=== PATIENT | female | born 1950 | race Caucasian/White ===

== ENCOUNTER 2022-02-26 13:46 | Outpatient (CLI) | payer MEDICARE, SELFPAY ==
--- NOTE | ~2022-02-26 | CT_ITS ---
EXAMINATION: CT abdomen pelvis w con DATE: 02/26/2022 15:07 INDICATION: Round distended abdomen, possible hepatomegaly. TECHNIQUE: Computed tomography (CT) of the abdomen and pelvis was performed with 100 CC Omnipaque 350 intravenous contrast. Automated exposure control and iterative reconstruction technique were employe d. Exam dose: 1412.86 mGy-cm total exam DLP. COMPARISON: None. FINDINGS: There is minimal atelectasis at the lung bases. No consolidation is noted at the included l ower lung zones. Cardiomegaly. Coronary artery calcification. No pericardial or pleural effusion. The liver, gallbladder, bile ducts, spleen, pancreas, pancreatic duct, and adrenal glands and kidneys are unremarkable. No urinary tract calculus or hydroureteronephrosis. The urinary bladder is unremar kable. Status post hysterectomy. There is atherosclerotic calcification of the descending thoracic and abdominal aorta but no evidence of aneurysm. No intraperitoneal or retroperitoneal or pelvic mass lesion or adenopathy or ascites. Scattered sigmoid and descending colonic diverticula; no CT evidence of diverticulitis. No bowel obst ruction. No bowel wall thickening, pneumatosis or intraperitoneal free air is detected. There is a suture line along the mid anterior abdominal and pelvic wall. Some fat containing ventral abdominal wall hernias are noted in the vicinity of the scar. No bowel herniation. Status post anterior and posterior lumbar surgical fusion. Degenerative change of the thoracic and ger mbar spine. No suspicious osteolytic or osteoblastic lesions are identified. IMPRESSION: Diverticulosis of the left colon; no evidence of diverticulitis Postoperative change of the anterior abdominal and pelvic wall with some fat containing hernias adjac ent to a scar Status post posterior and anterior surgical fusion of the lumbar spine Reviewed, dictated and finalized at [facility]. Reviewed, dictated and finalized at [facility]. IMPRESSION: Diverticulosis of the left colon; no evidence of diverticulitis Postoperative change of the anterior abdominal and pelvic wall with some fat co ntaining hernias adjacent to a scar Status post posterior and anterior surgical fusion of the lumbar spine
[2022-02-26 15:01] LABS: Estimated Glomerular Filt Rate > 60
== END 2022-02-26 13:47 | disposition home or self-care (01) ==
LOC: ANHIMG 13:49
PROVIDERS: PCP Internal Medicine; Visit Provider Nurse Practitioner
DX: K76.0 Fatty (change of) liver, not elsewhere classified (principal); R14.0 Abdominal distension (gaseous); R19.8 Other specified symptoms and signs involving the digestive system and abdomen; K57.30 Diverticulosis of large intestine without perforation or abscess without bleeding; Z98.1 Arthrodesis status
CPT/HCPCS: 74177; Q9967

== ENCOUNTER 2022-03-04 01:38 | Day surgery (SDC) | payer MEDICARE, SELFPAY ==
[2022-02-27 11:00] VITALS: BMI 46.2
[2022-03-04 11:20] VITALS: BP 125/75; PULSE 71; RESP 18; TEMP 36.6; O2SAT 97; BMI 44.0
[2022-03-04] MEDS: LACTATED RINGERS 1,000 ML 150 ML IV CONT (11:31)
--- NOTE | 2022-03-04 11:35 | PM.HPGS ---
History of Present Illness History of Present Illness Consent: Risks, benefits, and alternatives have been discussed and questions answered. Patient agrees to proceed with procedure. Chief complaint: Diarrhea, Belching, Abdomen Distension Narrative: Hafsa Shepard is a 71 year old female Presents for both colonoscopy an EGD. Patient has a longstanding history of diabetes for which she takes insulin and metformin. She has peripheral neuropathy. Patient has a history of follow eructations. She has been treated for acid reflux. recently obtained relief with metoclopramide. She does take this intermittently. Patient additionally has ongoing diarrhea. Poorly responsive to typical therapies. She has had frequent loose stools. GI endoscopy has been requested. Family history noncontributory. Review of Systems Review of Systems: Review of systems noncontributory. [facility] Past Medical History Medical History (Updated 03/04/22 @ 11:38 by Gallo Harris MD) Abnormal abdominal exam Belching symptom Bloating symptom COPD (chronic obstructive pulmonary disease) Hepatic steatosis History of Helicobacter pylori infection Hx of adenomatous colonic polyps retirement current use of anticoagulant Obesities, morbid Surgical History Surgical History (Updated 02/17/22 @ 12:40 by Eryn Estes, WORK COUNSELOR) H/O total hysterectomy H/O umbilical hernia repair Social History Social History Smoking packs per day: 1 Smoking cigarettes per day: 20.0 Years smoked: 50 Smoking pack-years: 50.00 Smoking status: Former smoker Tobacco type: cigarettes Alcohol intake: current Substance use: current Substance use type: marijuana Other substance usage details: MED[employer] MARIJUANA- GUMMIES [employer] VAPES Living arrangements: with family Spiritual care concerns: No Meds Home Medications and Allergies Home Medications Medication Instructions Recorded Confirmed Type albuterol sulfate 2.5 mg/3 mL 2.5 mg inhalation Q6H PRN 02/17/22 03/04/22 History (0.083 %) solution for nebulization Shortness Of Breath Or Wheezing albuterol sulfate 90 mcg/actuation 1 puff inhalation Q4H PRN 02/17/22 03/04/22 History aerosol inhaler Shortness Of Breath alendronate 70 mg/75 mL oral 70 mg PO WEEKLY 02/17/22 03/04/22 History solution apixaban 5 mg tablet 5 mg PO BID 02/17/22 03/04/22 History atorvastatin 80 mg tablet 80 mg PO DAILY 02/17/22 03/04/22 History budesonide 160 mcg-glycopyr 9 2 inh inhalation BID 02/17/22 03/04/22 History mcg-formot 4.8 mcg/actuation HFA inhaler diphenhydramine HCl 25 mg capsule 25 mg PO HS 02/17/22 03/04/22 History duloxetine 30 mg capsule,delayed 30 mg PO DAILY 02/17/22 03/04/22 History release fluconazole 150 mg tablet 150 mg PO WEEKLY 02/17/22 03/04/22 History metformin 1,000 mg tablet 1,000 mg PO BID 02/17/22 03/04/22 History metoclopramide HCl 10 mg tablet 10 mg PO Q6H PRN Nausea 02/17/22 03/04/22 History semaglutide 0.25 mg or 0.5 mg (2 1 mg subcut WEEKLY 02/17/22 03/04/22 History mg/1.5 mL) subcutaneous pen injector insulin aspart U-100 100 unit/mL 25 unit subcut QACBREAK 02/27/22 03/04/22 History subcutaneous solution (Novolog U-100 Insulin aspart) insulin aspart U-100 100 unit/mL 35 unit subcut QACLUNCH 02/27/22 03/04/22 History subcutaneous solution (Novolog U-100 Insulin aspart) insulin aspart U-100 100 unit/mL 45 unit subcut QACDINNER 02/27/22 03/04/22 History subcutaneous solution (Novolog U-100 Insulin aspart) insulin degludec 100 unit/mL (3 50 unit subcut QAM 02/27/22 03/04/22 History mL) subcutaneous pen (Tresiba FlexTouch U-100 insulin) insulin degludec 100 unit/mL (3 60 unit subcut HS 02/27/22 03/04/22 History mL) subcutaneous pen (Tresiba FlexTouch U-100 insulin) ipratropium 0.5 mg-albuterol 3 mg 3 ml inhalation Q6H PRN Shortness 02/27/22 03/04/22 History (2.5 mg base)/3 mL nebulization Of Breath Or Wheezing soln lisinopr
[2022-03-04 11:39] LABS: Glucose Point of Care 176 mg/dl (65-105)
--- NOTE | 2022-03-04 11:42 | WPDANESEPP ---
Anes - Eval Pre Procedure Procedure: Operation Date: 03/04/22 13:00 Proposed Procedures p Esophagogastroduodenoscopy & Colonoscopy - Gallo Harris MD Date/Time: 03/04/22 11:42 Surgeon: Steven Pre Op Diagnosis: Diarrhea, Belching, Abdomen Distension Patient Data Age: 71 Gender: F Height: 1.55 m Weight: 105.7 kg Last Vital Signs Temp 36.6 C 03/04/22 11:20 Pulse 71 03/04/22 11:20 Resp 18 03/04/22 11:20 BP 125/75 03/04/22 11:20 Pulse Ox 97 03/04/22 11:20 O2 Del Method Room Air 03/04/22 11:20 Allergies Allergy/AdvReac Type Severity Reaction Status Date / Time cefdinir Allergy Mild Rash Verified 03/04/22 11:17 nickel Allergy Mild rash Verified 03/04/22 11:17 propoxyphene Allergy Mild Nausea and Verified 03/04/22 11:17 Vomiting hydrocodone [From Vicodin] AdvReac Intermediate Nausea and Verified 03/04/22 11:17 Vomiting Opioids-Meperidine and AdvReac Intermediate Nausea and Verified 03/04/22 11:17 Related Vomiting Home Medications Medication Instructions Recorded Confirmed Type albuterol sulfate 2.5 mg/3 mL 2.5 mg inhalation Q6H PRN 02/17/22 03/04/22 History (0.083 %) solution for nebulization Shortness Of Breath Or Wheezing albuterol sulfate 90 mcg/actuation 1 puff inhalation Q4H PRN 02/17/22 03/04/22 History aerosol inhaler Shortness Of Breath alendronate 70 mg/75 mL oral 70 mg PO WEEKLY 02/17/22 03/04/22 History solution apixaban 5 mg tablet 5 mg PO BID 02/17/22 03/04/22 History atorvastatin 80 mg tablet 80 mg PO DAILY 02/17/22 03/04/22 History budesonide 160 mcg-glycopyr 9 2 inh inhalation BID 02/17/22 03/04/22 History mcg-formot 4.8 mcg/actuation HFA inhaler diphenhydramine HCl 25 mg capsule 25 mg PO HS 02/17/22 03/04/22 History duloxetine 30 mg capsule,delayed 30 mg PO DAILY 02/17/22 03/04/22 History release fluconazole 150 mg tablet 150 mg PO WEEKLY 02/17/22 03/04/22 History metformin 1,000 mg tablet 1,000 mg PO BID 02/17/22 03/04/22 History metoclopramide HCl 10 mg tablet 10 mg PO Q6H PRN Nausea 02/17/22 03/04/22 History semaglutide 0.25 mg or 0.5 mg (2 1 mg subcut WEEKLY 02/17/22 03/04/22 History mg/1.5 mL) subcutaneous pen injector insulin aspart U-100 100 unit/mL 25 unit subcut QACBREAK 02/27/22 03/04/22 History subcutaneous solution (Novolog U-100 Insulin aspart) insulin aspart U-100 100 unit/mL 35 unit subcut QACLUNCH 02/27/22 03/04/22 History subcutaneous solution (Novolog U-100 Insulin aspart) insulin aspart U-100 100 unit/mL 45 unit subcut QACDINNER 02/27/22 03/04/22 History subcutaneous solution (Novolog U-100 Insulin aspart) insulin degludec 100 unit/mL (3 50 unit subcut QAM 02/27/22 03/04/22 History mL) subcutaneous pen (Tresiba FlexTouch U-100 insulin) insulin degludec 100 unit/mL (3 60 unit subcut HS 02/27/22 03/04/22 History mL) subcutaneous pen (Tresiba FlexTouch U-100 insulin) ipratropium 0.5 mg-albuterol 3 mg 3 ml inhalation Q6H PRN Shortness 02/27/22 03/04/22 History (2.5 mg base)/3 mL nebulization Of Breath Or Wheezing soln lisinopril 40 mg tablet 40 mg PO DAILY 02/27/22 03/04/22 History metoprolol tartrate 25 mg tablet 25 mg PO BID 02/27/22 03/04/22 History multivit with minerals-iron 18 1 tablet PO DAILY 02/27/22 03/04/22 History mg-folic ac 400 mcg-vit K 25 mcg tablet (Adults Multivitamin) Laboratory Tests 03/04/22 11:34 POC Capillary Glucose 176 mg/dl H mg/dl (65-105) : patient denies Patient hx anesthesia problems: none Family hx anesthesia problems: none Results Review: All pre-operative results and documents have been reviewed as part of the pre-operative evaluation. [facility] Past Medical History Medical History (Updated 03/04/22 @ 11:38 by Gallo Harris MD) Abnormal abdominal exam Belching symptom Bloating symptom COPD (chronic obstructive pulmonary disease) Hepatic steatosis History of Helicobacter pylori infection Hx of
--- NOTE | 2022-03-04 11:50 | WPDANESEPPF ---
Anes - Initial Pre Proc Eval Procedure: Operation Date: 03/04/22 13:00 Proposed Procedures p Esophagogastroduodenoscopy & Colonoscopy - Gallo Harris MD Date/Time: 03/04/22 11:50 Surgeon: Gallo Harris MD Pre Op Diagnosis: Diarrhea, Belching, Abdomen Distension Patient Data Age: 71 Gender: F Height: 1.55 m Weight: 105.7 kg Last Vital Signs Temp 97.9 F 03/04/22 11:20 Pulse 71 03/04/22 11:20 Resp 18 03/04/22 11:20 BP 125/75 03/04/22 11:20 Pulse Ox 97 03/04/22 11:20 O2 Del Method Room Air 03/04/22 11:20 Allergies Allergy/AdvReac Type Severity Reaction Status Date / Time cefdinir Allergy Mild Rash Verified 03/04/22 11:17 nickel Allergy Mild rash Verified 03/04/22 11:17 propoxyphene Allergy Mild Nausea and Verified 03/04/22 11:17 Vomiting hydrocodone [From Vicodin] AdvReac Intermediate Nausea and Verified 03/04/22 11:17 Vomiting Opioids-Meperidine and AdvReac Intermediate Nausea and Verified 03/04/22 11:17 Related Vomiting Home Medications Medication Instructions Recorded Confirmed Type albuterol sulfate 2.5 mg/3 mL 2.5 mg inhalation Q6H PRN 02/17/22 03/04/22 History (0.083 %) solution for nebulization Shortness Of Breath Or Wheezing albuterol sulfate 90 mcg/actuation 1 puff inhalation Q4H PRN 02/17/22 03/04/22 History aerosol inhaler Shortness Of Breath alendronate 70 mg/75 mL oral 70 mg PO WEEKLY 02/17/22 03/04/22 History solution apixaban 5 mg tablet 5 mg PO BID 02/17/22 03/04/22 History atorvastatin 80 mg tablet 80 mg PO DAILY 02/17/22 03/04/22 History budesonide 160 mcg-glycopyr 9 2 inh inhalation BID 02/17/22 03/04/22 History mcg-formot 4.8 mcg/actuation HFA inhaler diphenhydramine HCl 25 mg capsule 25 mg PO HS 02/17/22 03/04/22 History duloxetine 30 mg capsule,delayed 30 mg PO DAILY 02/17/22 03/04/22 History release fluconazole 150 mg tablet 150 mg PO WEEKLY 02/17/22 03/04/22 History metformin 1,000 mg tablet 1,000 mg PO BID 02/17/22 03/04/22 History metoclopramide HCl 10 mg tablet 10 mg PO Q6H PRN Nausea 02/17/22 03/04/22 History semaglutide 0.25 mg or 0.5 mg (2 1 mg subcut WEEKLY 02/17/22 03/04/22 History mg/1.5 mL) subcutaneous pen injector insulin aspart U-100 100 unit/mL 25 unit subcut QACBREAK 02/27/22 03/04/22 History subcutaneous solution (Novolog U-100 Insulin aspart) insulin aspart U-100 100 unit/mL 35 unit subcut QACLUNCH 02/27/22 03/04/22 History subcutaneous solution (Novolog U-100 Insulin aspart) insulin aspart U-100 100 unit/mL 45 unit subcut QACDINNER 02/27/22 03/04/22 History subcutaneous solution (Novolog U-100 Insulin aspart) insulin degludec 100 unit/mL (3 50 unit subcut QAM 02/27/22 03/04/22 History mL) subcutaneous pen (Tresiba FlexTouch U-100 insulin) insulin degludec 100 unit/mL (3 60 unit subcut HS 02/27/22 03/04/22 History mL) subcutaneous pen (Tresiba FlexTouch U-100 insulin) ipratropium 0.5 mg-albuterol 3 mg 3 ml inhalation Q6H PRN Shortness 02/27/22 03/04/22 History (2.5 mg base)/3 mL nebulization Of Breath Or Wheezing soln lisinopril 40 mg tablet 40 mg PO DAILY 02/27/22 03/04/22 History metoprolol tartrate 25 mg tablet 25 mg PO BID 02/27/22 03/04/22 History multivit with minerals-iron 18 1 tablet PO DAILY 02/27/22 03/04/22 History mg-folic ac 400 mcg-vit K 25 mcg tablet (Adults Multivitamin) Laboratory Tests 03/04/22 11:34 POC Capillary Glucose 176 mg/dl H mg/dl (65-105) : patient denies Patient hx anesthesia problems: none Family hx anesthesia problems: none Results Review: All pre-operative results and documents have been reviewed as part of the pre-operative evaluation. [facility] Past Medical History Medical History (Updated 03/04/22 @ 11:38 by Gallo Harris MD) Abnormal abdominal exam Belching symptom Bloating symptom COPD (chronic obstructive pulmonary disease) Hepatic steatosis History of Helicobacter pylori
--- NOTE | 2022-03-04 12:17 | SUR.OPER ---
EGD START 1153, END 1155 COLONOSCOPY START 1202, END 1215
[2022-03-04 12:18] VITALS: BP 124/70; PULSE 80; RESP 22; O2SAT 98
[2022-03-04 12:28] VITALS: BP 129/73; PULSE 77; RESP 20; O2SAT 98
[2022-03-04 12:38] VITALS: BP 134/77; PULSE 72; RESP 18; O2SAT 98
== END 2022-03-04 13:00 | disposition home or self-care (01) ==
PROVIDERS: PCP Internal Medicine; Visit Provider Internal Medicine Gastroenterology
PROC: 0DJ08ZZ Inspection of Upper Intestinal Tract, Via Natural or Artificial Opening Endoscopic (ICD-10-PCS; CPT 43235; principal; 2022-03-04 13:00)
DX: R19.7 Diarrhea, unspecified (principal); K63.5 Polyp of colon; K64.8 Other hemorrhoids; K57.30 Diverticulosis of large intestine without perforation or abscess without bleeding; K21.00 Gastro-esophageal reflux disease with esophagitis, without bleeding; K29.60 Other gastritis without bleeding; J44.9 Chronic obstructive pulmonary disease, unspecified; E11.40 Type 2 diabetes mellitus with diabetic neuropathy, unspecified; E11.43 Type 2 diabetes mellitus with diabetic autonomic (poly)neuropathy; K31.84 Gastroparesis; K76.0 Fatty (change of) liver, not elsewhere classified; Z87.891 Personal history of nicotine dependence; F12.90 Cannabis use, unspecified, uncomplicated; E66.01 Morbid (severe) obesity due to excess calories; Z68.41 Body mass index [BMI] 40.0-44.9, adult; Z79.4 Long term (current) use of insulin; Z79.51 Long term (current) use of inhaled steroids; Z79.01 Long term (current) use of anticoagulants; Z79.84 Long term (current) use of oral hypoglycemic drugs; Z79.899 Other long term (current) drug therapy
CPT/HCPCS: 45385; 45380; 43239; 82948; 87081; 88305; J2704; J7120

== ENCOUNTER 2022-03-20 08:04 | Outpatient (CLI) | payer MEDICARE, SELFPAY ==
--- NOTE | ~2022-03-20 | NM_ITS ---
EXAM: NM gastric emptying study DATE: 03/20/2022 12:56 INDICATION: Belching. TECHNIQUE: A gastric emptying study was performed using the methodology of Lexii ORTIZ, et al. J Nucl Med 2007; 48:568-572. The patient was given a meal consisting of 2 scrambled eggs labeled with 0.926 mCi Tc-99m sulfur colloid, 2 slices of toast, two packages of jam, and approximately 120 mL of water . Simultaneous anterior and posterior 1-min images of the abdomen were obtained with the patient supi ne at multiple time points over a total period of 4 hours. The geometric mean of anterior and posteri or views was determined, and the percentage retention was calculated for each time point. COMPARISON: CT abdomen and pelvis 02/26/2022 FINDINGS: Gastric retention of the radiotracer-labeled meal was 95%, 69%, and 30% at the 1-hour, 2-h our, and 4-hour time points, respectively. With this technique, apparent rapid gastric emptying is goetz ggested by <30% gastric retention at 1 hour. Delayed gastric emptying is defined by gastric retention of >90% at 1 hour, >60% retention at 2 hours, or >10% retention at 4 hours. IMPRESSION: 1. Delayed gastric emptying. Reviewed, dictated and finalized at [facility]. [employer]
== END 2022-03-20 08:05 | disposition home or self-care (01) ==
PROVIDERS: PCP Internal Medicine; Visit Provider Internal Medicine Gastroenterology
DX: E11.43 Type 2 diabetes mellitus with diabetic autonomic (poly)neuropathy (principal); K31.84 Gastroparesis; K30 Functional dyspepsia
CPT/HCPCS: 78264; A9541